=== PATIENT | female | born 1985 | race Caucasian/White ===

== ENCOUNTER 2017-12-18 02:07 | Inpatient (IN) | payer BC ==
[~2017-12-18] VITALS: Ht 160 cm; Wt 86.4 kg
[2017-12-18] MEDS ORDERED: OXYTOCIN 30U/ 0.9% NaCL 500ML 500 ML IV SCH (02:31)
[2017-12-18 02:59] LABS: MICROSCOPIC AUTO
[2017-12-18] MEDS ORDERED: SODIUM CITRATE/CITRIC ACID 30 ML UDC PO ONE (03:00)
[2017-12-18] MEDS ORDERED: LACTATED RINGERS 1,000 ML IVBOLUS ONE (03:00)
[2017-12-18] MEDS: LACTATED RINGERS 1,000 ML IV SCH ×8 (03:00→18:32)
[2017-12-18] MEDS: PLEASE ENTER ALLERGIES MC SCH ×2 (03:00→11:00)
[2017-12-18] MEDS ORDERED: METOCLOPRAMIDE 5 MG/ML, 2ML IV ONE (03:00)
[2017-12-18 03:03] LABS: BASOPHILS # (AUTO) 0.09 x10^3/uL (0-0.1); BASOPHILS % (AUTO) 1 % (0-1); EOSINOPHILS # (AUTO) 0.04 x10^3/uL (0-0.4); EOSINOPHILS % (AUTO) 0 % (1-7); LYMPHOCYTES # (AUTO) 2.06 x10^3/uL (1-3.4); LYMPHOCYTES % (AUTO) 19 % (22-44); MD NO; MEAN CORPUSCULAR HEMOGLOBIN 29.7 pg (27.0-34.8); MEAN CORPUSCULAR HGB CONC 33.4 g/dL (32.4-35.8); MEAN CORPUSCULAR VOLUME 88.8 fL (80-100); MEAN PLATELET VOLUME 8.6 fL (7.4-10.4); MONOCYTES # (AUTO) 0.77 x10^3/uL (0.2-0.8); MONOCYTES % (AUTO) 7 % (2-9); NEUTROPHILS % (AUTO) 73 % (42-75); PLATELET COUNT 291 x10^3/uL (130-400); RED BLOOD COUNT 4.07 x10^6/uL (3.82-5.3)
[2017-12-18 03:03] LABS: CULTURE INDICATED? NO
[2017-12-18] MEDS ORDERED: NEWBORN KIT ONE (03:15)
[2017-12-18] MEDS ORDERED: PREN-59 PO (03:23)
[2017-12-18 03:26] VITALS: BP 114/66
[2017-12-18] MEDS ORDERED: SODIUM CITRATE/CITRIC ACID 30 ML UDC ONE ×2 (04:35→07:23)
[2017-12-18] MEDS ORDERED: FENTANYL PF 100 MCG/2ML ONE ×3 (04:36→09:08)
[2017-12-18] MEDS ORDERED: METOCLOPRAMIDE 5 MG/ML, 2ML ONE (04:36)
[2017-12-18] MEDS: FENTANYL PF 100 MCG/2ML IVPush PRN ×3 (04:42→10:28)
[2017-12-18] MEDS ORDERED: OXYTOCIN 30U/ 0.9% NaCL 500ML 500 ML ONE (07:08)
[2017-12-18] MEDS ORDERED: LIDOCAINE-MPF 2% ,5ML ONE (07:10)
[2017-12-18] MEDS ORDERED: EPHEDRINE 50 MG/ML, 1ML ONE (07:10)
[2017-12-18] MEDS ORDERED: CEFAZOLIN 1,000 MG ONE (07:10)
[2017-12-18] MEDS ORDERED: OXYTOCIN 10 UNITS/ML, 1ML ONE (07:10)
[2017-12-18] MEDS ORDERED: EPINEPHRINE 1 MG/ML, 1ML ONE (07:15)
[2017-12-18] MEDS ORDERED: LIDOCAINE/PF 2%, 2ML ONE (07:23)
[2017-12-18] MEDS ORDERED: BUPIVACAINE/PF-EPI 0.5% 1:200K ONE (07:23)
[2017-12-18] MEDS ORDERED: KETOROLAC 30 MG/1 ML ONE (07:23)
[2017-12-18] MEDS: OXYTOCIN 30U/ 0.9% NaCL 500ML 500 ML IV SCH ×2 (08:32→18:32)
[2017-12-18] MEDS ORDERED: ONDANSETRON 2MG/ML, 2ML IV PRN (09:00)
[2017-12-18] MEDS ORDERED: MISOPROSTOL 200 MCG TABLET PR PRN (09:00)
[2017-12-18] MEDS ORDERED: OXYcodone/APAP 5/325MG TABLET PO PRN (09:00)
[2017-12-18] MEDS: PRENATAL VIT/IRON/FA 1 EACH TABLET PO SCH (09:00)
[2017-12-18] MEDS ORDERED: ACETAMINOPHEN 325 MG TABLET PO PRN ×2 (09:00)
[2017-12-18] MEDS ORDERED: morphine SULFATE 10 MG/ML, 1ML IVPush PRN (09:00)
[2017-12-18] MEDS ORDERED: METOCLOPRAMIDE 5 MG/ML, 2ML IV PRN (09:00)
[2017-12-18] MEDS ORDERED: CALCIUM CARBONATE 500 MG TAB.CHEW PO PRN (09:00)
[2017-12-18 11:00] VITALS: BP 122/69
[2017-12-18] MEDS: OXYcodone/APAP 5/325MG TABLET PO PRN ×3 (12:34→21:31)
[2017-12-18] MEDS: KETOROLAC 30 MG/1 ML IV PRN ×2 (15:08→21:31)
[2017-12-18 16:00] VITALS: BP 116/69
[2017-12-18 16:38] LABS: BASOPHILS # (AUTO) 0.02 x10^3/uL (0-0.1); BASOPHILS % (AUTO) 0 % (0-1); EOSINOPHILS # (AUTO) 0.01 x10^3/uL (0-0.4); EOSINOPHILS % (AUTO) 0 % (1-7); LYMPHOCYTES # (AUTO) 1.83 x10^3/uL (1-3.4); LYMPHOCYTES % (AUTO) 14 % (22-44); MD NO; MEAN CORPUSCULAR HEMOGLOBIN 29.6 pg (27.0-34.8); MEAN CORPUSCULAR HGB CONC 33.1 g/dL (32.4-35.8); MEAN CORPUSCULAR VOLUME 89.5 fL (80-100); MEAN PLATELET VOLUME 8.3 fL (7.4-10.4); MONOCYTES # (AUTO) 0.76 x10^3/uL (0.2-0.8); MONOCYTES % (AUTO) 6 % (2-9); NEUTROPHILS # (AUTO) 10.96 x10^3/uL (1.8-6.8); NEUTROPHILS % (AUTO) 81 % (42-75); PLATELET COUNT 225 x10^3/uL (130-400); RED BLOOD COUNT 3.77 x10^6/uL (3.82-5.3); RED CELL DISTRIBUTION WIDTH 17.5 % (9.6-15.2)
[2017-12-18 19:30] VITALS: BP 116/76
[2017-12-18] MEDS: DOCUSATE 100 MG CAPSULE PO PRN (21:31)
[2017-12-19 00:15] VITALS: BP 114/72
[2017-12-19] MEDS: LACTATED RINGERS 1,000 ML IV SCH ×3 (00:32→08:32)
[2017-12-19] MEDS: KETOROLAC 30 MG/1 ML IV PRN (03:26)
[2017-12-19] MEDS: OXYcodone/APAP 5/325MG TABLET PO PRN ×5 (03:26→23:17)
[2017-12-19 03:32] VITALS: BP 128/78
[2017-12-19] MEDS: OXYTOCIN 30U/ 0.9% NaCL 500ML 500 ML IV SCH ×2 (04:32→14:32)
[2017-12-19 07:15] VITALS: BP 115/77
[2017-12-19] MEDS: DOCUSATE 100 MG CAPSULE PO PRN ×2 (08:37→20:42)
[2017-12-19] MEDS: PRENATAL VIT/IRON/FA 1 EACH TABLET PO SCH (09:00)
[2017-12-19] MEDS ORDERED: KETOROLAC 30 MG/1 ML ONE (09:43)
[2017-12-19] MEDS: IBUPROFEN 600 MG TABLET PO PRN (14:10)
[2017-12-19 20:30] VITALS: BP 120/84
[2017-12-20] MEDS: OXYTOCIN 30U/ 0.9% NaCL 500ML 500 ML IV SCH (00:32)
[2017-12-20] MEDS: IBUPROFEN 600 MG TABLET PO PRN ×2 (01:10→07:46)
[2017-12-20] MEDS: OXYcodone/APAP 5/325MG TABLET PO PRN ×2 (03:50→07:46)
[2017-12-20 07:35] VITALS: BP 123/80
[2017-12-20] MEDS: PRENATAL VIT/IRON/FA 1 EACH TABLET PO SCH (07:46)
[2017-12-20] MEDS: DOCUSATE 100 MG CAPSULE PO PRN (07:46)
[2017-12-20] MEDS ORDERED: OXYC-302 PO (08:51)
[2017-12-20] MEDS ORDERED: IBUP-1222 PO (08:52)
== END 2017-12-20 09:45 | disposition home or self-care (01) | DRG 766 ==
LOC: LDOP 02:07 → LDIP 02:36 → 2NW 10:38
PROVIDERS: ADMIT Obstetrics & Gynecology; ATTEND Obstetrics & Gynecology
PROC: 10D00Z1 Extraction of Products of Conception, Low, Open Approach (ICD-10-PCS; principal; 2017-12-18)
DX: O32.8XX0 Maternal care for other malpresentation of fetus, not applicable or unspecified (principal); O12.04 Gestational edema, complicating childbirth; O34.211 Maternal care for low transverse scar from previous cesarean delivery; O69.81X0 Labor and delivery complicated by cord around neck, without compression, not applicable or unspecified; Z37.0 Single live birth; Z3A.39 39 weeks gestation of pregnancy
CPT/HCPCS: 36415; 81001; 85025; 86850; 86900; J0171; J0690; J1885; J3010; J3490; J2590; J2765; J7120